=== PATIENT | female | born 1985 | race Caucasian/White ===

== ENCOUNTER 2019-11-24 19:05 | Emergency (ER) | payer SELFPAY ==
[2019-11-24 19:07] VITALS: BP 144/87; PULSE 79; RESP 18; TEMP 36.4; O2SAT 96; BMI 42.0
--- NOTE | 2019-11-24 19:44 | W.ED.BACK ---
HPI - Back Pain/Injury General: Chief Complaint: Back Pain/Injury Stated Complaint: lower back pain Time Seen by Provider: 11/24/19 19:32 History of Present Illness: HPI Narrative: Patient is a 34-year-old female comes into the ED with low back pain. Patient says it started really bad last night. For the past week patient has been in the process of moving so she has been doing a lot of lifting lately. Patient describes the pain is all in the lower back and then it radiates and shoots down both legs. Denies any bladder or bowel incontinence or loss of sensation in the pelvic region. Associated symptoms: Deny abdominal pain, chills, dysuria, fatigue, fever(s), hematuria, nausea or vomiting Review of Systems Const: Denies: fever, chills or fatigue Eyes: Denies: change in vision or eye discomfort ENMT: Denies: throat pain, painful swallowing, nasal discharge or nasal congestion Card: Denies: chest pain, palpitations, edema, swelling of feet/ankles, shortness of breath on exertion or shortness of breath when lying down Resp: Denies: shortness of breath, productive cough or non-productive cough GI: Denies: abdominal pain, nausea, vomiting, diarrhea, constipation or blood in stool : Denies: flank pain, painful urination or blood in urine Musc: Denies: neck pain, back pain or extremity swelling Skin/Breast: Denies: rash or new lesion Neuro: Denies: headache, numbness in extremities or weakness in extremities PFS ED PFSH: Social History Smoking and tobacco status: current every day smoker Physical Exam Const: COMMON NORMALS: oriented x3 HENMT: COMMON NORMALS: normocephalic HEAD & SCALP: normocephalic MOUTH: oral and palatal mucosa normal THROAT: posterior oropharynx normal and uvula midline Neck/C-Spine: COMMON NORMALS: supple GENERAL: Yes normal visual inspection Resp: COMMON NORMALS: normal respiratory effort, no retractions, no use of accessory muscles and clear to auscultation bilaterally AUSCULTATION: clear to auscultation bilaterally Cardio: COMMON NORMALS: regular rate, regular rhythm, S1 normal heart sound, S2 normal heart sound, no gallops, no clicks, no murmurs and peripheral pulses 2+ throughout RATE: regular rate RHYTHM: regular rhythm HEART SOUNDS: S1 normal and S2 normal PERIPHERAL PULSES: pulses 2+ throughout GI: COMMON NORMALS: normal to inspection, nondistended, normoactive bowel sounds, soft to palpation, non-tender and no masses PALPATION: Yes soft : COMMON NORMALS: Yes no CVA tenderness BLADDER/KIDNEY EXAM: Yes no CVA tenderness Back/Pelvis: COMMON NORMALS: no CVA tenderness LUMBAR SPINE/LOWER BACK: Yes ROM limited (due to pain) and Yes paraspinal muscle tenderness Extremity: COMMON NORMALS: normal to inspection Neuro: COMMON NORMALS: oriented x3 and moves all extremities Skin: COMMON NORMALS: no rashes or lesions noted GENERAL SKIN EXAM: no rashes or lesions noted and dry skin Course Vital Signs: Vital signs: Vital Signs Temperature 98.4 F 11/24/19 20:34 Pulse Rate 68 11/24/19 20:34 Respiratory Rate 18 11/24/19 20:34 Blood Pressure 137/102 11/24/19 20:34 Pulse Oximetry 68 L 11/24/19 20:34 Discharge Plan Discharge Patient Disposition: Home, Self-Care Clinical Impression: Lumbar radiculopathy Condition: Stable Prescriptions: New ibuprofen 600 mg tablet 600 mg PO Q8H Qty: 30 RF: 0 Robaxin-750 750 mg tablet 750 mg PO Q8H Qty: 20 RF: 0 prednisone 20 mg tablet 20 mg PO TID 5 Days Qty: 15 RF: 0 No Action No Known Home Medications RF: 0 Discharge Orders: Discharge Order (Routine); Ordered 11/24/19 Ordered By: Swapnil Valladares Discharge Diet: Regular Discharge Activity: Increase activity as tolerated Patient Instructions: Lumbar Radiculopathy (ED) Activity Restrictions/Additional Instructions: Follow-up with your PCP in 7 days for reevaluation. Take muscle relaxer at night before bed. Muscle relaxer can cause drowsiness. Take the full course of the steroid as prescribed and also take the ibuprofen as prescribed for pain and inflammation. Apply ice on lower back to help with symptoms. You can also apply some heat to lower back if that helps as well. Remember to stretch lower back daily. Stand Alone Forms: Work/School Release Discharge Date/Time: 11/24/19 20:33 Coding Level of Care Code ED Fractionation Supervisor for Joss Fwd Exam Comprehensive
[2019-11-24] MEDS: predniSONE 20 mg Tablet 60 MG PO (20:12)
[2019-11-24] MEDS: ketorolac 30 mg/mL INJ IM (20:18)
[2019-11-24] MEDS: orphenadrine 30 mg/mL Inj 2 mL 60 MG IM (20:21)
[2019-11-24 20:34] VITALS: BP 137/102; PULSE 68; RESP 18; TEMP 36.9; O2SAT 68
== END 2019-11-24 20:33 | disposition home or self-care (01) ==
PROVIDERS: Emergency Provider Physician Assistant
DX: M54.16 Radiculopathy, lumbar region (principal); F17.200 Nicotine dependence, unspecified, uncomplicated
CPT/HCPCS: 12345; 96372; 96375; 99281; 99283; J1885; J2360; J7512

== ENCOUNTER 2020-05-18 07:43 | Emergency (ER) | payer SELFPAY ==
[2020-05-18 07:44] VITALS: BP 162/95; PULSE 100; RESP 18; TEMP 36.9; O2SAT 97; BMI 42.0
[2020-05-18 07:57] VITALS: BP 134/92; PULSE 97; RESP 16; O2SAT 97
--- NOTE | 2020-05-18 07:59 | W.ED.GENADLT ---
HPI - General Adult General: Chief complaint: Headache Stated complaint: MOHAMUD/L SIDE PAIN/BACK PAIN Time Seen by Provider: 05/18/20 07:47 History of Present Illness: HPI narrative: Patient comes in complain about tension type headache that she gets after work over the last week and work has been stressful past week because it is in the month. Also has history of low back problems now having some left flank pain. She denies any hematuria. She is taken [id number] caffeine Tylenol aspirin combination she said that seems to help her headache. She has a history of migraines also. Light and sound do bother her headache. MD complaint: Tension type headache that is brought on a migraine Onset (ago): day(s) Associated symptoms: Reports no associated symptoms and headache(s); Deny chest pain, dyspnea, nausea, rash or vomiting Treatments prior to arrival: NSAID and aspirin Review of Systems Const: Denies: fever(s), chills or body aches Eyes: Denies: change in vision or blurry vision ENMT: Denies: throat pain or nasal congestion Card: Denies: chest pain or dyspnea on exertion Resp: Denies: dyspnea, productive cough or non-productive cough GI: Denies: abdominal pain, nausea or vomiting Musc: Reports: other (Left flank pain is nonradiating); Denies: extremity pain Skin/Breast: Denies: rash Neuro: Reports: headache(s) Psych: Denies: anxiety or depression Price/Lymph: Denies: easy bruising PFSH ED PFSH: Social History Smoking and tobacco status: current every day smoker Physical Exam Const: COMMON NORMALS: no acute distress, average body habitus and patient oriented x3 HENMT: COMMON NORMALS: normocephalic HEAD & SCALP: normal to inspection and normocephalic FACE & SINUS: normal facial exam Eye: COMMON NORMALS: conjunctivae normal GENERAL EYE: appearance normal, both eyes and all related structures CONJUNCTIVA: Yes conjunctivae normal Neck/C-Spine: COMMON NORMALS: no JVD Chest: COMMONS NORMALS: normal inspection of the chest Resp: COMMON NORMALS: normal respiratory effort and clear to auscultation bilaterally AUSCULTATION: clear to auscultation bilaterally Cardio: COMMON NORMALS: no JVD, regular rate and regular rhythm RATE: regular rate RHYTHM: regular rhythm GI: COMMON NORMALS: Normal to inspection, nondistended, normoactive bowel sounds present Extremity: COMMON NORMALS: normal to inspection and full ROM Neuro: COMMON NORMALS: patient oriented x3 Course Vital Signs: Vital signs: Vital Signs Temperature 98.4 F 05/18/20 07:44 Pulse Rate 100 05/18/20 07:44 Respiratory Rate 18 05/18/20 07:44 Blood Pressure 162/95 05/18/20 07:44 Pulse Oximetry 97 05/18/20 07:44 Discharge Plan Discharge Prescriptions: No Action No Known Home Medications RF: 0 ibuprofen 600 mg tablet 600 mg PO Q8H Qty: 30 RF: 0 Robaxin-750 750 mg tablet 750 mg PO Q8H Qty: 20 RF: 0 Coding Level of Care Code ED Brain Wave Technician for Joss [place]
[2020-05-18] MEDS: ketorolac 30 mg/mL INJ IVP (08:09)
[2020-05-18] MEDS: sodium chloride 0.9% 1,000 ML 999 ML IV (08:09)
[2020-05-18] MEDS: ondansetron 2 mg/ML SDV 2 mL 4 MG IVP (08:10)
[2020-05-18 08:23] LABS: Specific Gravity, Urine 1.015 (1.005-1.030); Urine Appearance Hazy (CLEAR); Urine Color Yellow (Yellow); pH Urine 6.5 (5-7)
[2020-05-18 08:24] LABS: Add Urine Microscopic? YES; Bilirubin Urine Neg (NEGATIVE); Blood Urine 2+ (Negative); Glucose Urine UA Norm (Normal); Ketones Urine Negative (Negative); Leukocyte Esterase Urine 1+ (Negative); Nitrate Urine Negative (Negative); Protein Urine Neg (Negative); Urobilinogen Urine Norm (Negative)
[2020-05-18 08:25] LABS: Squamous Epithelial Cell Urine 15-25 (0-5)
[2020-05-18 08:26] LABS: Add Urine Culture? No; Bacteria Urine 1+; Mucus Urine TRACE
[2020-05-18 09:03] VITALS: BP 120/67; PULSE 71; RESP 18; O2SAT 96
--- NOTE | 2020-05-18 09:34 | CT_ITS ---
WS: [id number] CT ABDOMEN AND PELVIS NONCONTRAST HISTORY: left flank pain TECHNIQUE: Imaging performed through the abdomen and pelvis. Coronal and sagittal reformats are submi tted. All CT scans at [facility] use at least one of these dose optimization techniques: automated exposure control; mA and/or kV adjustment per patient size (includes targeted exams where d ose is matched to clinical indication); or iterative reconstruction. DLP: 1725.19 mGy.cm COMPARISON: 07/31/2019 Lower thorax: Small hiatal hernia. Otherwise negative. Liver: Moderate hepatomegaly and hepatic steatosis. No mass or bile duct dilatation. Benign granuloma ta. Gallbladder: Normal gallbladder. Pancreas: Normal size and attenuation. Normal pancreatic duct. No pancreatitis or mass. Spleen: Normal size spleen with granulomata. Adrenal glands: Normal. No mass. Right kidney: Nonobstructing 2 mm calcification lower pole. Otherwise negative. Left kidney: Mild enlargement and perinephric stranding. No hydronephrosis. Although there is no hydr onephrosis there is very mild inflammation at the central renal pelvis. The ureter is not dilated. Aorta: Normal abdominal aorta, no aneurysm or atherosclerosis. No free fluid or significant adenopathy. There are calcifications near the rosa hepatis which are pr obably from prior granulomatous disease and stable. GI tract: Normal appendix. There is no GI tract obstruction. No significant diverticular disease. Abdominal wall: Small umbilical hernia contains fat only. Pelvis: Normal. Small benign inguinal lymph nodes are stable. Osseous structures: Unremarkable. CT/CT kidney stone [id number] IMPRESSION: 1. Very minimal perinephric stranding and inflammatory changes involving the L EFT kidney and renal pelvis. No stones or calcifications identified or obstruct ion. May be secondary to a recently passed renal calcification or pyelonephriti s. 2. Nonobstructing 2 mm calcification RIGHT kidney. 3. Moderate hepatomegaly and hepatic steatosis. 4. Normal gallbladder.
[2020-05-18 10:00] VITALS: BP 124/86; PULSE 70; RESP 16; O2SAT 96
[2020-05-18 11:01] VITALS: BP 143/80; PULSE 70; RESP 15; O2SAT 97
--- NOTE | 2020-05-18 12:34 | PC.NURSE ---
Read and agree with assessment.
== END 2020-05-18 11:02 | disposition home or self-care (01) ==
PROVIDERS: Emergency Provider Nurse Practitioner Family
DX: R51 Headache (principal); F17.210 Nicotine dependence, cigarettes, uncomplicated
CPT/HCPCS: 12345; 74176; 81001; 96361; 96374; 96375; 99283; J1885; J2405; J7030

== ENCOUNTER → 2020-09-01 10:37 | Outpatient (BNVA) | payer SELFPAY | PROVIDERS: Visit Provider Nurse Practitioner Family | DX: N39.0 Urinary tract infection, site not specified (principal); R31.9 Hematuria, unspecified | CPT/HCPCS: 81000 ==

== ENCOUNTER 2021-02-09 08:44 | Emergency (ER) | payer SELFPAY ==
[2021-02-09 08:46] VITALS: BP 162/107; PULSE 94; RESP 18; TEMP 36.2; O2SAT 97; BMI 40.2
--- NOTE | 2021-02-09 08:57 | W.ED.HA ---
HPI - Headache General: Chief Complaint: Headache Stated Complaint: ABD pain/MOHAMUD Time Seen by Provider: 02/09/21 08:49 History of Present Illness: HPI Narrative: 36-year-old female comes in today with complaints of headache. Patient reports that she has a history of migraine headaches. Patient reports yesterday she got overheated at work and since then has been having a severe headache. Patient reports nausea and vomiting last night. Patient comes in today due to persistent headache and some abdominal discomfort. MD elicited complaint: headache Onset (ago): hour(s) Onset description: gradually Location: diffuse Severity: severe Quality & Timing: aching and throbbing Exacerbating factors: none Relieving factors: rest Context: other Associated symptoms: Reports nausea and vomiting Treatments prior to arrival: none Review of Systems General: Reports: 10 or more systems reviewed and unremarkable except in HPI and below GI: Reports: nausea and vomiting Neuro: Reports: headache(s) PFSH ED PFSH: Social History (Updated 09/01/20 @ 10:36 by Tyson Lauren LPN) Smoking and tobacco status: current every day smoker Alcohol intake: never Physical Exam Const: COMMON NORMALS: no acute distress and patient oriented x3 GENERAL APPEARANCE: cooperative HENMT: COMMON NORMALS: normocephalic and Normal external nose present HEAD & SCALP: normal to inspection and normocephalic NOSE: Normal external nose present MOUTH: Normal oral and palatal mucosa present Eye: GENERAL EYE: appearance normal, both eyes and all related structures Neck/C-Spine: COMMON NORMALS: full ROM Chest: COMMONS NORMALS: normal inspection of the chest Resp: COMMON NORMALS: normal respiratory effort EFFORT & INSPECTION: Yes able to speak in complete sentences Cardio: COMMON NORMALS: regular rate and regular rhythm RATE: regular rate RHYTHM: regular rhythm GI: COMMON NORMALS: non-tender : COMMON NORMALS: Yes no CVA tenderness BLADDER/KIDNEY EXAM: Yes no CVA tenderness Back/Pelvis: COMMON NORMALS: no CVA tenderness and thoracic and lumbar spine normal to inspection Extremity: COMMON NORMALS: normal to inspection Neuro: COMMON NORMALS: patient oriented x3 and moves all extremities Psych: COMMON NORMALS: mental status grossly normal and cooperative Skin: COMMON NORMALS: no rashes or lesions noted GENERAL SKIN EXAM: no rashes or lesions noted Course ED course: 1030, reassess patient. Patient reports resolution of headache. Patient appears well. Patient wants to go home now. Vital Signs: Vital signs: Vital Signs Temperature 97.2 F L 02/09/21 08:46 Pulse Rate 87 02/09/21 09:00 Respiratory Rate 12 02/09/21 09:00 Blood Pressure 150/125 02/09/21 09:00 Pulse Oximetry 97 02/09/21 09:00 MDM - Headache MDM Narrative: Medical decision making narrative: Patient reports that she started having a headache yesterday after becoming overheated at work. On exam patient appears mildly unwell but not toxic. Abdomen soft nontender. Skin was warm and dry. Patient had good range of motion the neck without any rigidity or signs of meningitis. Vital signs were normal except for some mild elevation in blood pressure. Differential diagnosis includes but not limited to dehydration, heat exhaustion, migraine headache. Laboratory values are unremarkable. Patient had resolution of headache with 1 L of IV fluid, 15 mg of Toradol, and 10 mg of Reglan. Suspect patient probably had become overheated at work that caused her to have a migraine. Patient was treated for migraine and had good results. Reviewed recommendations for follow-up and need for return. Patient reported understanding and agreed to plan. Lab Data: Labs: Lab Results 02/09/21 02/09/21 02/09/21 Range/Units 08:55 08:55 08:55 WBC 6.9 (4.0-10.0) 10^3/ uL RBC 5.25 (4.1-5.3) 10^6/u L Hgb 12.1 (11.5-15.3) g/dL Hct 39.7 (37.0-47.0) % MCV 75.6 L (81-99) fL MCH 23.0 L (28.0-34.0) pg MCHC 30.5 (30.0-36.0) g/dL RDW 16.9 H (12.1-15.1) % Plt Count 439 H (130-400) 10^3/c mm MPV 8.6 (7.4-10.4) fL Neut % (Auto) 56.3 % Lymph % (Auto) 34.1 % [place] % (Auto) 7.0 % Eos % (Auto) 1.6 % Baso % (Auto) 0.7 % Neut # (Auto) 3.89 (1.8-7.7) 10^3/u L Lymph # (Auto) 2.4 (0.8-4.8) 10^3/u L [place] # (Auto) 0.5 (0.2-0.9) 10^3/u L Eos # (Auto) 0.1 (0.0-0.8) 10^3/u L Baso # (Auto) 0.1 (0.0-0.1) 10^3/u L Nucleated RBC % (a uto) 0 % Nucleated RBCs # 0.0 /100WBC Sodium 138 (136-145) mmol/L Potassium 3.9 (3.5-5.1) mmol/L Chloride 102 (98-107) mmol/L Carbon Dioxide 25 (22-29) mmol/L Anion Gap 14.9 (5-19) BUN 6 (6-20) mg/dL Creatinine 0.6 (0.5-0.9) mg/dL GFR Calculation 113.1 (90-130) mL/min Glucose 123 H (65-115) mg/dL Calculated Osmolal ity 285 (285-295) mOsm/k g Calcium 8.7 (8.5-10.5) mg/dL Total Bilirubin 0.2 (0.15-1.2) mg/dL AST 16 (0-32) U/L ALT 23 (0-33) U/L Alkaline Phosphata se 146 H (35-105) IU/L Total Protein 7.3 (6.6-8.7) g/dL Albumin 4.3 (3.5-5.2) g/dL Globulin 3.0 (1.3-4.6) g/dL Lipase 24 (13-60) U/L HCG, Qual Negative (Negative) Discharge Plan Discharge Patient Disposition: Home Clinical Impression: Migraine Qualifiers: Migraine type: unspecified Status migrainosus presence: without status migrainosus Intractability: not intractable Qualified Code(s): G43.909 - Migraine, unspecified, not intractable, without status migrainosus Condition: Stable Prescriptions: No Action No Known Home Medications RF: 0 Discharge Orders: Discharge ED (Routine); Ordered 02/09/21 Ordered By: Twan Pugh Discharge Diet: Usual diet Discharge Activity: Increase activity as tolerated Patient Instructions: Migraine Headache (ED), Opioid Safety Activity Restrictions/Additional Instructions: Home and rest. Drink plenty of water. Continue routine medications as directed. Follow-up with primary care as needed. Return to the emergency department for new concerns. Stand Alone Forms: Work/School Release Coding Level of Care Code ED Adult Day Care Worker for Joss Fwbirgit Exam Comprehensive
[2021-02-09 09:00] VITALS: BP 150/125; PULSE 87; RESP 12; O2SAT 97
[2021-02-09 09:02] LABS: Basophils # 0.1 10^3/uL (0.0-0.1); Basophils % 0.7 %; Eosinophils # 0.1 10^3/uL (0.0-0.8); Eosinophils % 1.6 %; Hematocrit 39.7 % (37.0-47.0); Hemoglobin 12.1 g/dL (11.5-15.3); Lymphocytes # 2.4 10^3/uL (0.8-4.8); Lymphocytes % 34.1 %; Mean Corpuscular HGB Conc 30.5 g/dL (30.0-36.0); Mean Corpuscular Volume 75.6 fL (81-99); Mean Platelet Volume 8.6 fL (7.4-10.4); Monocytes # 0.5 10^3/uL (0.2-0.9); Neutrophils # 3.89 10^3/uL (1.8-7.7); Neutrophils % 56.3 %; Nucleated Red Blood Cells % 0 %; Platelet Count 439 10^3/cmm (130-400); Red Blood Count 5.25 10^6/uL (4.1-5.3); Red Cell Distribution Width 16.9 % (12.1-15.1); White Blood Count 6.9 10^3/uL (4.0-10.0)
[2021-02-09] MEDS: sodium chloride 0.9% 1,000 ML 999 ML IV (09:11)
[2021-02-09] MEDS: ketorolac 30 mg/mL INJ 15 MG IVP (09:11)
[2021-02-09] MEDS: metoclopramide 5 mg/mL SDV 2 mL 10 MG IVP (09:12)
[2021-02-09 09:25] LABS: HCG, Serum Qual Negative (Negative)
[2021-02-09 09:33] LABS: Alanine Aminotransferase 23 U/L (0-33); Albumin Level 4.3 g/dL (3.5-5.2); Alkaline Phosphatase 146 IU/L (35-105); Anion Gap 14.9 (5-19); Aspartate Amino Transferase 16 U/L (0-32); Blood Urea Nitrogen 6 mg/dL (6-20); Calcium 8.7 mg/dL (8.5-10.5); Carbon Dioxide 25 mmol/L (22-29); Chloride 102 mmol/L (98-107); Glomerular Filtration Rate 113.1 mL/min (90-130); Glucose 123 mg/dL (65-115); Lipase 24 U/L (13-60); Osmolality Calculated 285 mOsm/kg (285-295); Potassium 3.9 mmol/L (3.5-5.1); Sodium 138 mmol/L (136-145); Total Bilirubin 0.2 mg/dL (0.15-1.2); Total Protein 7.3 g/dL (6.6-8.7)
[2021-02-09 11:13] VITALS: BP 127/83; PULSE 76; RESP 16; O2SAT 97
== END 2021-02-09 11:14 | disposition home or self-care (01) ==
PROVIDERS: Emergency Provider Nurse Practitioner Family
DX: G43.909 Migraine, unspecified, not intractable, without status migrainosus (principal); F17.210 Nicotine dependence, cigarettes, uncomplicated
CPT/HCPCS: 80053; 83690; 84703; 85025; 96361; 96374; 96375; 99284; J1885; J2765; J7030

== ENCOUNTER → 2021-03-15 14:02 | Outpatient (BNVA) | payer SELFPAY | PROVIDERS: PCP Family Medicine Adult Medicine; Visit Provider Family Medicine Adult Medicine | DX: N93.9 Abnormal uterine and vaginal bleeding, unspecified (principal); Z98.51 Tubal ligation status; R51.9 Headache, unspecified; E66.01 Morbid (severe) obesity due to excess calories; Z68.41 Body mass index [BMI] 40.0-44.9, adult | CPT/HCPCS: 85025 ==

== ENCOUNTER → 2021-04-07 14:20 | Outpatient (BNVA) | payer OTHER, SELFPAY | PROVIDERS: PCP Family Medicine Adult Medicine; Visit Provider Nurse Practitioner Women's Health | DX: N93.9 Abnormal uterine and vaginal bleeding, unspecified (principal) | CPT/HCPCS: 84439; 84443; 88175 ==

== ENCOUNTER → 2021-04-15 00:01 | Outpatient (BNVA) | payer OTHER, SELFPAY | PROVIDERS: PCP Family Medicine Adult Medicine; Visit Provider Nurse Practitioner Women's Health | DX: A59.9 Trichomoniasis, unspecified (principal) | CPT/HCPCS: 87661 ==

== ENCOUNTER → 2021-04-21 14:03 | Outpatient (BNVA) | payer OTHER, SELFPAY | PROVIDERS: PCP Family Medicine Adult Medicine; Visit Provider Nurse Practitioner Women's Health | DX: N93.9 Abnormal uterine and vaginal bleeding, unspecified (principal); N88.8 Other specified noninflammatory disorders of cervix uteri | CPT/HCPCS: 76830 ==

== ENCOUNTER → 2021-06-04 08:27 | Outpatient (BNVA) | payer OTHER, SELFPAY | PROVIDERS: PCP Family Medicine Adult Medicine; Visit Provider Nurse Practitioner Women's Health | DX: Z20.822 Contact with and (suspected) exposure to COVID-19 (principal); N93.9 Abnormal uterine and vaginal bleeding, unspecified | CPT/HCPCS: 87635 ==

== ENCOUNTER 2021-06-10 06:05 | Day surgery (SDC) | payer OTHER, SELFPAY ==
[2021-06-04 09:34] VITALS: BMI 45.1
--- NOTE | 2021-06-04 09:59 | ANES.PREANE2 ---
Pre-Anesthetic Assessment Pre-Anesthetic Assessment: Height/Weight: Height 1.57 m Weight 112.037 kg Proposed Procedure: Operation Date: 06/10/21 07:10 Proposed Procedures p Dilation And Curettage (D&C) Endometrial biopsy [id number] N93.9(Not Applicable) - Segundo Mcgill MD Was Beta Deloris taken within 24 hours: N/A Was Clonidine taken within 24 hours: N/A Social: Social History: Tobacco and No alcohol Exam: Pre-Anes Outpt Exam: alert, oriented x 3 and regular rate & rhythm Airway: Submandibular: WNL Cervical ROM: WNL MP: 2 Dentition: False Pulmonary: Pulmonary: COPD CV/HEM: CV/HEM: Anemia Metabolic: Metabolic: Morbid obesity Neuropsych: Neuropsych: MOHAMUD Anesthetic Plan: ASA status: 3 Anesthesia: General Risk of > 500 ml blood loss (7ml/kg in children): No PFSH Anesthesia PFSH: Medical History Abnormal uterine bleeding unrelated to menstrual cycle Generalized headaches Morbid obesity with BMI of 40.0-44.9, adult No pertinent past medical history neghx: htn,dm,thyroid,dvt/pe PCP: Dr. Mckeon Surgical History History of bilateral tubal ligation (~2007) History of lumpectomy of left breast benign History of placement of ear tubes Hx of section 2002 2007- tubal ligation at same time Hx of removal of cyst (~2009) on tailbone-- had to have packing Family History Sister Diabetes Father Diabetes Hypertension Family/Other Stroke Maternal Aunt Denies family history of Colon cancer Ovarian cancer Heart disease Hypercholesteremia Breast cancer Uterine cancer Thyroid disease Data Anesthesia Cardiac Studies: No Data to Display
[2021-06-10] VITALS (7 sets, daily range): BP systolic 110–165; BP diastolic 80–104; PULSE 96–145; RESP 17–22; TEMP 36.3–37; O2SAT 89–98
[2021-06-10 06:20] LABS: OR HCG Qualitative Urine Negative (Negative)
[2021-06-10] MEDS: scopolamine 1.5 Patch 1 PATCH TRANSDERMA (06:30)
[2021-06-10] MEDS: sodium chloride 0.9% 500 ML IV (06:30)
[2021-06-10 06:44] LABS: Basophils % 0.4 %; Eosinophils # 0.2 10^3/uL (0.0-0.8); Eosinophils % 1.9 %; Hematocrit 34.4 % (37.0-47.0); Hemoglobin 9.9 g/dL (11.5-15.3); Lymphocytes # 2.7 10^3/uL (0.8-4.8); Lymphocytes % 33.9 %; Mean Corpuscular HGB Conc 28.8 g/dL (30.0-36.0); Mean Corpuscular Hemoglobin 21.5 pg (28.0-34.0); Mean Corpuscular Volume 74.6 fl (81-99); Mean Platelet Volume 8.6 fL (7.4-10.4); Monocytes # 0.5 10^3/uL (0.2-0.9); Monocytes % 5.9 %; Neutrophils # 4.58 10^3/uL (1.8-7.7); Neutrophils % 57.6 %; Nucleated Red Blood Cells % 0 %; Platelet Count 512 10^3/cmm (130-400); Red Blood Count 4.61 10^6/uL (4.1-5.3); Red Cell Distribution Width 19.5 % (12.1-15.1); White Blood Count 7.9 10^3/uL (4.0-10.0)
--- NOTE | 2021-06-10 06:46 | P.ANESUD_ITS ---
Pre-Anesthetic Update Pre-Anesthetic Assessment: Date of Surgery/Procedure: 06/10/21 Preop Lissett gnosis: Abnormal uterine bleeding Proposed Procedure: Operation Date: 06/10/21 07:00 Proposed Procedures p Dilation And Curettage (D&C) Endometrial biopsy [id number] N93.9(Not Applicable) - Segundo Mcgill MD Any changes to Pre-Anesthetic Assessment?: No Last Intake: Intake Last Liquid Date 06/10/21 Last Liquid Time 04:50 Last Solid Date 06/09/21 Last Solid Time 20:00 Labs Last 48hrs: Laboratory Results - last 48 hr 06/10/21 06/10/21 06:08 06:15 WBC 7.9 RBC 4.61 Hgb 9.9 L Hct 34.4 L MCV 74.6 L MCH 21.5 L MCHC 28.8 L RDW 19.5 H Plt Count 512 H MPV 8.6 Neut % (Auto) 57.6 Lymph % (Auto) 33.9 [place] % (Auto) 5.9 Eos % (Auto) 1.9 Baso % (Auto) 0.4 Neut # (Auto) 4.58 Lymph # (Auto) 2.7 [place] # (Auto) 0.5 Eos # (Auto) 0.2 Baso # (Auto) 0.0 Nucleated RBC % (a uto) 0 Nucleated RBCs # 0.0 Urine HCG, Qual Negative Vitals: Temperature 97.4 F L 06/10/21 06:16 Temperature Source Temporal Artery S can 06/10/21 06:16 Pulse Rate 96 06/10/21 06:16 Respiratory Rate 18 06/10/21 06:16 Blood Pressure 165/104 06/10/21 06:16 Blood Pressure Carline n 124 06/10/21 06:16 Pulse Oximetry 98 06/10/21 06:16 Oxygen Delivery Me thod 06/10/21 06:17 Exam: Pre-Anes Outpt Exam: alert, oriented x 3 and clear to auscultation bilaterally Cardiac Studies: No Data to Display
[2021-06-10 06:58] LABS: Alanine Aminotransferase 18 U/L (0-33); Albumin Level 3.8 g/dL (3.5-5.2); Alkaline Phosphatase 126 IU/L (35-105); Anion Gap 14.1 (5-19); Aspartate Amino Transferase 15 U/L (0-32); Blood Urea Nitrogen 11 mg/dL (6-20); Carbon Dioxide 25 mmol/L (22-29); Chloride 101 mmol/L (98-107); Globulin 3.6 g/dL (1.3-4.6); Glomerular Filtration Rate 113.1 mL/min (90-130); Glucose 139 mg/dL (65-115); Osmolality Calculated 284 mOsm/kg (285-295); Potassium 4.1 mmol/L (3.5-5.1); Sodium 136 mmol/L (136-145); Total Bilirubin 0.2 mg/dL (0.15-1.2); Total Protein 7.4 g/dL (6.6-8.7)
--- NOTE | 2021-06-10 06:58 | W.PM.OPSUD ---
Surgery/Procedure H&P Update DATE OF PROCEDURE: June 10, 2021 DATE H&P PERFORMED: 06/01/21 H&P UPDATE INFORMATION: I have reviewed H&P completed within last 30 days, I have examined patient prior to procedure and No changes to prior documentation PREOP DIAGNOSIS: Abnormal uterine bleeding PLANNED PROCEDURE: Operation Date: 06/10/21 07:00 Proposed Procedures p Dilation And Curettage (D&C) Endometrial biopsy [id number] N93.9(Not Applicable) - Segundo Mcgill MD
[2021-06-10 07:10] LABS: Add Urine Culture? No; Add Urine Microscopic? YES; Bacteria Urine TRACE /hpf; Bilirubin Urine Neg (Negative); Blood Urine Neg (Negative); Glucose Urine UA Norm (Normal); Ketones Urine Negative (Negative); Leukocyte Esterase Urine Negative (Negative); Mucus Urine TRACE /hpf; Nitrate Urine Negative (Negative); Protein Urine Neg (Negative); RBC Urine 0-4 /hpf (0-2); Urine Appearance SL Hazy (CLEAR); Urine Color Yellow (Yellow); Urobilinogen Urine Norm (Negative); WBC Urine 0-4 /hpf (0-5); pH Urine 5 (5-7)
[2021-06-10 07:11] LABS: Calcium 8.5 mg/dL (8.5-10.5)
[2021-06-10] MEDS: sodium chloride 0.9% 1,000 ML 30 ML IV (07:12)
--- NOTE | 2021-06-10 07:32 | PM.OP ---
Operative Report Date of procedure: June 10, 2021 Pre-op Diagnosis: Abnormal uterine bleeding Post-op diagnosis: same Procedure Done: Fractional dilation and curettage Pathology: Endocervical curettings. Endometrial curetting Surgeon: Sgeundo Mcgill MD Anesthesia: General Estimated blood loss (mL): 1 IV fluids (mL): 500 Condition: stable Disposition: PACU Procedure: After informed consent, the risks included but were not limited to bleeding, infection, injury to internal organs. The patient was counseled on a possible laparotomy and on the potential need for hysterectomy. The patient expressed understanding of the risks involved, all questions were answered, and the patient consented to the procedure. The patient was taken to the operating room where general anesthesia was administered. She was placed in the dorsal lithotomy position and prepped and draped in sterile fashion. A time out procedure was performed. The patient was examined under anesthesia and found to have a normal uterus with normal adnexa. A sterile speculum was placed in the vagina, and the anterior lip of cervix was grasped with the single toothed tenaculum. The uterus was then gently sounded to 12 cm, and the cervix was dilated with cervical dilators. The curette was advanced gently to the uterine fundus rotated to clear the uterus. The curettage was then performed until a gritty texture was noted. There was minimal bleeding noted and the tenaculum removed with goad hemostasis noted. The patient tolerated the procedure well. The patient was taken to the recovery area in stable condition. Instrument and sponge counts was correct x3.
--- NOTE | 2021-06-10 08:53 | PC.NURSE ---
No blood or drainage noted on kayla pad during post care or discharge to home.
--- NOTE | 2021-06-10 12:24 | ANE.PACU2 ---
Inpatient post-anesthesia follow up: Airway intact: Yes Vital signs: Temperature 98.6 F Pulse Rate 106 Respiratory Rate 18 Blood Pressure 110/81 Pulse Oximetry 95 Oxygen Delivery Me thod Room Air Oxygen Flow Rate 2 Fraction of Inspir ed Oxygen Hydration adequate: Yes Nausea and vomiting: No Pain level: 2 Mental status: Baseline
== END 2021-06-10 08:35 | disposition home or self-care (01) ==
PROVIDERS: PCP Family Medicine Adult Medicine; Visit Provider Obstetrics & Gynecology
PROC: (CPT 58120; principal; 2021-06-10 07:00)
DX: N93.9 Abnormal uterine and vaginal bleeding, unspecified (principal); J44.9 Chronic obstructive pulmonary disease, unspecified; E66.01 Morbid (severe) obesity due to excess calories; Z68.42 Body mass index [BMI] 45.0-49.9, adult; Z82.49 Family history of ischemic heart disease and other diseases of the circulatory system; Z83.3 Family history of diabetes mellitus
CPT/HCPCS: 58120; 36415; 80053; 81001; 81025; 84703; 85025; 86850; 86900; 88305; J0690; J3010; J7030; J7040

== ENCOUNTER 2021-07-12 08:33 | Emergency (ER) | payer OTHER, SELFPAY ==
[2021-07-12 08:39] VITALS: BP 138/85; PULSE 85; RESP 18; TEMP 36.6; O2SAT 100; BMI 44.8
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
[2021-07-12 08:56] VITALS: BP 135/93; PULSE 86; RESP 18; TEMP 36.7; O2SAT 98
--- NOTE | 2021-07-12 08:56 | CT_ITS ---
WS: [id number] CT ABDOMEN AND PELVIS WITH CONTRAST HISTORY: diffuse abdominal pain, nausea and vomiting for 3 weeks. TECHNIQUE: Imaging performed of the abdomen and pelvis with IV contrast. Single phase imaging of the abdomen. Coronal and sagittal reformats are submitted. All CT scans at [facility] use at [address] [facility] one of these dose optimization techniques: automated exposure control; mA and/or kV adjustment per patient size (includes targeted exams where dose is matched to clinical indication); or iterative re construction. IV CONTRAST: Omnipaque 300; 95 mL IV. Oral contrast: No DLP: 1751.33 mGy.cm COMPARISON: 05/18/2020 Lower thorax: Lung bases are clear. Heart is normal size. No hiatal hernia. Liver/biliary system: Mild diffuse hepatic steatosis. The liver is also moderately enlarged extending over a length of 19 cm. No bile duct dilatation or mass. Gallbladder: Normal. No gallstones or wall thickening. No pericholecystic fluid. Pancreas: Normal size pancreas and pancreatic duct. No adjacent inflammation. Spleen: Normal size spleen with several granulomata. Adrenal glands: Normal. Right kidney: Normal. Left kidney: Normal. Aorta: Normal. Lymphadenopathy: None. Free fluid: None. GI tract: Normal appendix. No GI tract obstruction. No significant diverticula. Abdominal wall: Unremarkable abdominal wall. No hernia. Pelvis: Normal size anteverted uterus. RIGHT ovarian cyst measures 4.0 x 3.8 cm. Small follicle LEFT ovary. Deep inguinal lymph nodes are mildly prominent measuring up to 12 mm but not considered enlarg ed. Bones: Unremarkable. CT/CT abdomen pelvis w con* [id number] IMPRESSION: 1. Normal appendix. 2. Moderate size RIGHT ovarian cyst measures 4.0 x 3.8 cm. 3. No GI tract obstruction. 4. Moderate hepatomegaly and mild hepatic steatosis.
[2021-07-12 09:12] LABS: Basophils # 0.1 10^3/uL (0.0-0.1); Basophils % 0.7 %; Eosinophils # 0.1 10^3/uL (0.0-0.8); Eosinophils % 1.6 %; Hematocrit 34.2 % (37.0-47.0); Hemoglobin 9.9 g/dL (11.5-15.3); Lymphocytes # 2.3 10^3/uL (0.8-4.8); Lymphocytes % 31.9 %; Mean Corpuscular HGB Conc 28.9 g/dL (30.0-36.0); Mean Corpuscular Hemoglobin 20.7 pg (28.0-34.0); Mean Corpuscular Volume 71.4 fl (81-99); Mean Platelet Volume 8.7 fL (7.4-10.4); Monocytes # 0.4 10^3/uL (0.2-0.9); Neutrophils # 4.36 10^3/uL (1.8-7.7); Neutrophils % 59.5 %; Nucleated Red Blood Cells % 0 %; Platelet Count 427 10^3/cmm (130-400); Red Blood Count 4.79 10^6/uL (4.1-5.3); Red Cell Distribution Width 18.5 % (12.1-15.1); White Blood Count 7.3 10^3/uL (4.0-10.0)
[2021-07-12 09:26] LABS: HCG, Serum Qual Negative (Negative)
[2021-07-12 09:32] LABS: Alanine Aminotransferase 15 U/L (0-33); Albumin Level 3.9 g/dL (3.5-5.2); Alkaline Phosphatase 128 IU/L (35-105); Anion Gap 15.1 (5-19); Aspartate Amino Transferase 13 U/L (0-32); Blood Urea Nitrogen 8 mg/dL (6-20); Calcium 8.9 mg/dL (8.5-10.5); Carbon Dioxide 24 mmol/L (22-29); Chloride 102 mmol/L (98-107); Glomerular Filtration Rate 94.7 mL/min (90-130); Glucose 143 mg/dL (65-115); Lipase 27 U/L (13-60); Osmolality Calculated 285 mOsm/kg (285-295); Potassium 4.1 mmol/L (3.5-5.1); Sodium 137 mmol/L (136-145); Total Bilirubin 0.2 mg/dL (0.15-1.2); Total Protein 6.9 g/dL (6.6-8.7)
[2021-07-12] MEDS: iohexol 300 mg/mL 100 mL Btl IV (09:35)
[2021-07-12 09:41] VITALS: BP 133/78; PULSE 75; RESP 16; O2SAT 98
[2021-07-12 09:51] LABS: Add Urine Microscopic? YES; Bilirubin Urine Neg (Negative); Blood Urine 2+ (Negative); Glucose Urine UA Norm (Normal); Ketones Urine Negative (Negative); Leukocyte Esterase Urine Negative (Negative); Nitrate Urine Negative (Negative); Protein Urine Neg (Negative); Urine Appearance Hazy (CLEAR); Urine Color Yellow (Yellow); Urobilinogen Urine Norm (Negative); pH Urine 6.5 (5-7)
[2021-07-12 09:54] LABS: Bacteria Urine 1+ /hpf; RBC Urine 0-4 /hpf (0-2); Squamous Epithelial Cell Urine 15-25 /hpf (0-5); WBC Urine 0-4 /hpf (0-5)
[2021-07-12 10:40] VITALS: BP 138/100; PULSE 78; RESP 18; O2SAT 96
== END 2021-07-12 10:38 | disposition home or self-care (01) ==
PROVIDERS: Emergency Provider Physician Assistant; PCP Family Medicine Adult Medicine
DX: R10.84 Generalized abdominal pain (principal); E66.01 Morbid (severe) obesity due to excess calories; Z68.41 Body mass index [BMI] 40.0-44.9, adult; F17.210 Nicotine dependence, cigarettes, uncomplicated
CPT/HCPCS: 74177; 80053; 81001; 83690; 84703; 85025; 99283; Q9967

== ENCOUNTER 2021-07-19 08:09 | Emergency (ER) | payer OTHER, SELFPAY ==
[2021-07-19 08:15] VITALS: BP 143/104; PULSE 98; RESP 20; TEMP 36.4; O2SAT 99; BMI 44.8
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
--- NOTE | 2021-07-19 08:44 | US_ITS ---
WS: [id number] ULTRASOUND ABDOMEN LIMITED CLINICAL INFORMATION: RUQ abd pain COMPARISON: None. FINDINGS: Technically difficult examination Liver Size: Enlarged Craniocaudal length: 19.2 cm. Echogenicity: Normal. Surface nodularity: None. Mass (size and location): None. Bile ducts Intrahepatic ducts: Normal. Common bile duct diameter: 0.3 cm. Gallbladder Normal. Gallstones: None. Gallbladder sludge: None. Gallbladder wall thickening: None. Pericholecystic fluid: None. Sonographic Amaya sign: Absent. Pancreas Normal as visualized. Right kidney: Normal. Hydronephrosis: None. Size: 11.3 cm x 4.6 cm x 4.8 cm. Abdominal aorta and IVC Visualized portions are normal. Ascites: None. US/US gall bladder [id number] IMPRESSION: 1. Hepatomegaly with diffuse fatty infiltration. 2. Normal gallbladder. No cholelithiasis. 3. Normal common bile duct. 4. No hydronephrosis in right kidney.
[2021-07-19 09:02] LABS: Basophils # 0.1 10^3/uL (0.0-0.1); Basophils % 0.8 %; Eosinophils # 0.1 10^3/uL (0.0-0.8); Eosinophils % 1.8 %; Hematocrit 36.5 % (37.0-47.0); Lymphocytes # 2.2 10^3/uL (0.8-4.8); Lymphocytes % 37.4 %; Mean Corpuscular HGB Conc 27.4 g/dL (30.0-36.0); Mean Corpuscular Hemoglobin 20.1 pg (28.0-34.0); Mean Corpuscular Volume 73.3 fl (81-99); Monocytes # 0.3 10^3/uL (0.2-0.9); Monocytes % 5.5 %; Neutrophils # 3.23 10^3/uL (1.8-7.7); Neutrophils % 54.3 %; Nucleated Red Blood Cells % 0 %; Platelet Count 459 10^3/cmm (130-400); Red Blood Count 4.98 10^6/uL (4.1-5.3); Red Cell Distribution Width 18.6 % (12.1-15.1)
[2021-07-19 09:16] LABS: Add Urine Microscopic? YES; Bilirubin Urine Neg (Negative); Blood Urine 3+ (Negative); Glucose Urine UA Norm (Normal); Ketones Urine Negative (Negative); Leukocyte Esterase Urine Negative (Negative); Nitrate Urine Negative (Negative); Protein Urine Neg (Negative); Specific Gravity, Urine 1.025 (1.005-1.030); Urine Appearance Clear (CLEAR); Urine Color Yellow (Yellow); Urobilinogen Urine Norm (Negative); pH Urine 5 (5-7)
[2021-07-19 09:17] LABS: Bacteria Urine TRACE /hpf; RBC Urine RARE /hpf (0-2); Squamous Epithelial Cell Urine 0-4 /hpf (0-5)
[2021-07-19 09:30] LABS: Alanine Aminotransferase 16 U/L (0-33); Albumin Level 3.7 g/dL (3.5-5.2); Alkaline Phosphatase 125 IU/L (35-105); Anion Gap 12.9 (5-19); Aspartate Amino Transferase 12 U/L (0-32); Blood Urea Nitrogen 16 mg/dL (6-20); Calcium 8.6 mg/dL (8.5-10.5); Carbon Dioxide 26 mmol/L (22-29); Chloride 101 mmol/L (98-107); Creatinine Clr Calc Pharmacy 152.4736; Globulin 3.3 g/dL (1.3-4.6); Glomerular Filtration Rate 113.1 mL/min (90-130); Glucose 143 mg/dL (65-115); Lipase 36 U/L (13-60); Osmolality Calculated 286 mOsm/kg (285-295); Potassium 3.9 mmol/L (3.5-5.1); Sodium 136 mmol/L (136-145); Total Bilirubin 0.2 mg/dL (0.15-1.2)
--- NOTE | 2021-07-20 12:01 | DCPLANNER ---
counter manager had message to schedule a follow up appointment for patient for an outpatient HIDA scan. counter manager faxed patients information to centralized scheduling, who will call patient with appointment information. counter manager also had message to schedule a follow up appointment for patient with [facility] General Surgery. counter manager emailed patients information to Idalia Salazar and Alondra at [facility] General Surgery / ENT clinic. Patients information will be printed and reviewed. Clinic will call patient with appointment information.
--- NOTE | 2021-07-21 11:40 | DCPLANNER ---
Patient has a follow up appointment scheduled for , July 22, 2021 at 3:[address] Leary at [facility] General Surgery. manager commercial called centralized scheduling, spoke with Mirela, to confirm that order for HIDA scan was received. manager commercial was told that scheduling did receive the order.
--- NOTE | 2021-07-30 14:47 | DCPLANNER ---
Addendum entered by Yanique Ross 10/09/21 12:25: Patient had a HIDA scan scheduled - patient did attend appointment. Patient had a follow up appointment scheduled with general surgery - patient did attend appointment. Original Note: Patient has an outpatient HIDA scan scheduled for Monday, August 09, 2021 at 10:00.
== END 2021-07-19 10:47 | disposition home or self-care (01) ==
PROVIDERS: Emergency Provider Family Medicine; PCP Family Medicine Adult Medicine
DX: K83.8 Other specified diseases of biliary tract (principal); F17.210 Nicotine dependence, cigarettes, uncomplicated
CPT/HCPCS: 76705; 80053; 81001; 83690; 85025; 99283

== ENCOUNTER 2021-08-09 09:40 | Outpatient (CLI) | payer OTHER, SELFPAY ==
--- NOTE | 2021-08-09 10:00 | NM_ITS ---
WS: [id number] NUCLEAR MEDICINE HIDA SCAN WITH GALLBLADDER EJECTION FRACTION HISTORY: R10.9 - Unspecified abdominal pain COMPARISON: 07/19/2021 TECHNIQUE: The patient was intravenously injected with 4.7 mCi of TC99m Mebrofenin. Immediate imaging over the right upper quadrant was followed by 5 minute image and additional images for a total of 60 minutes. Normal uptake of radiotracer throughout the liver. Activity identified in the gallbladder at 10 minutes and well distended by 60 minutes. Activity in the proximal small bowel was seen by 40 minutes. Good washout of the radiotracer from the liver by 60 minutes. The patient then drank 8 ounces of Ensure Plus. Ejection fraction at 60 minutes was 80%. Normal GB ej ection fraction is 35-75%. Post fatty meal symptoms: None. NM/NM hepatobiliary w phar* [id number] IMPRESSION: 1. Normal HIDA scan. 2. Normal gallbladder ejection fraction.
== END 2021-08-09 09:41 | disposition home or self-care (01) ==
LOC: NM 09:41
PROVIDERS: PCP Family Medicine Adult Medicine; Visit Provider Surgery
DX: R10.9 Unspecified abdominal pain (principal)
CPT/HCPCS: 78227; A9537

== ENCOUNTER → 2021-08-19 14:40 | Outpatient (BNVA) | payer OTHER, SELFPAY | PROVIDERS: PCP Family Medicine Adult Medicine; Visit Provider Nurse Practitioner Women's Health | DX: A59.9 Trichomoniasis, unspecified (principal) | CPT/HCPCS: 87661 ==

== ENCOUNTER → 2021-11-02 15:59 | Outpatient (BNVA) | payer OTHER, SELFPAY | PROVIDERS: PCP Family Medicine Adult Medicine; Visit Provider Obstetrics & Gynecology | DX: N93.9 Abnormal uterine and vaginal bleeding, unspecified (principal) | CPT/HCPCS: 83001; 84146; 84402; 84403; 84443 ==

== ENCOUNTER 2022-01-14 21:45 | Emergency (ER) | payer OTHER, SELFPAY ==
[2022-01-14 21:53] VITALS: BP 135/84; PULSE 115; RESP 24; TEMP 36.3; O2SAT 97; BMI 46.6
--- NOTE | 2022-01-14 22:53 | W.ED.BACK ---
HPI - Back Pain/Injury General: Chief Complaint: Back Pain/Injury Stated Complaint: low back pain Time Seen by Provider: 01/14/22 22:53 History of Present Illness: 36-year-old female comes in today with complaints of right low back pain. Patient reports that she was getting ice from her chest freezer and reached to grab a ice pack when she felt a pull and strain in her low back. Since then patient has had increasing tightening and pain to the right lower back. Patient does occasionally have back pain. Patient denies any fever, loss of bowel or bladder control Patient appears in moderate to severe pain. Patient appears nontoxic. Associated symptoms: Deny abdominal pain or fever(s) Review of Systems General: Reports: 10 or more systems reviewed and unremarkable except in HPI and below Const: Denies: fever(s) Card: Denies: chest pain Resp: Denies: dyspnea GI: Denies: abdominal pain Musc: Reports: back pain Skin/Breast: Denies: rash PFSH ED PFSH: Medical History Abnormal uterine bleeding unrelated to menstrual cycle Aftercare following surgery of the genitourinary system Family history of diabetes mellitus (DM) father and sister Generalized headaches Morbid obesity with BMI of 40.0-44.9, adult No pertinent past medical history neghx: htn,dm,thyroid,dvt/pe PCP: Dr. Mckeon Surgical History History of bilateral tubal ligation (~2007) History of lumpectomy of left breast benign History of placement of ear tubes Hx of section 2002 2007- tubal ligation at same time Hx of removal of cyst (~2009) on tailbone-- had to have packing Family History Sister Diabetes Father Diabetes Hypertension Family/Other Stroke Maternal Aunt Other Family history of diabetes mellitus (DM) Denies family history of Colon cancer Ovarian cancer Heart disease Hypercholesteremia Breast cancer Uterine cancer Thyroid disease Female Reproductive History: Date of last menstrual period: 07/19/21 Physical Exam Const: COMMON NORMALS: alert HENMT: COMMON NORMALS: normocephalic HEAD & SCALP: normocephalic Neck/C-Spine: COMMON NORMALS: full ROM Resp: COMMON NORMALS: normal respiratory effort and clear to auscultation bilaterally AUSCULTATION: clear to auscultation bilaterally Cardio: COMMON NORMALS: regular rate RATE: regular rate Back/Pelvis: LUMBAR SPINE/LOWER BACK: Yes paraspinal muscle tenderness Lumbar paraspinal muscle tenderness: right and Yes paraspinal muscle spasm Lumbar paraspinal muscle spasm: right Neuro: SENSORIUM/ORIENTATION: Yes alert Skin: COMMON NORMALS: no rashes or lesions noted GENERAL SKIN EXAM: no rashes or lesions noted Course Vital Signs: Vital signs: Vital Signs Temperature 97.4 F L 01/14/22 21:53 Pulse Rate 115 H 01/14/22 21:53 Respiratory Rate 24 H 01/14/22 21:53 Blood Pressure 135/84 01/14/22 21:53 Pulse Oximetry 97 01/14/22 21:53 MDM - Back Pain/Injury Medical Decision Making 36-year-old female comes in today with injury and pain to the right low back. On exam patient has muscle tenderness to the right lower paraspinous muscles. No spinal tenderness was noted on palpation. Differential diagnosis includes lumbar strain, contusion, intervertebral disc disease, facet arthropathy. Patient's explanation for the pain suggests a strain injury. We will go ahead and treat for pain with recommendations for follow-up. Patient stated understanding agreed to plan. Reviewed red flags such as fever and loss of bowel and bladder control with recommendations for immediate follow-up at that time. Patient stated understanding. Discharge Plan Discharge Patient Disposition: Home Clinical Impression: Strain of lumbar region Condition: Stable Prescriptions: New diclofenac sodium 50 mg tablet,delayed release (DR/EC) 50 mg PO BID Qty: 14 0RF hydrocodone-acetaminophen 5-325 mg tablet 1 tab PO TID PRN (Reason: pain (scale score 7-10)) Qty: 7 0RF No Action baclofen 10 mg tablet 10 mg PO TID PRN (Reason: muscle spasticity) Qty: 15 0RF amitriptyline 25 mg tablet 25 mg PO .hs Qty: 30 3RF Rx Instructions: take one daily at bedtime tramadol 50 mg tablet 50 mg PO Q8H PRN (Reason: headaches and mod to severe pain) 30 Days Qty: 30 3RF ferrous sulfate 325 mg (65 mg iron) tablet 325 mg PO BID 0RF loratadine 10 mg capsule 10 mg PO DAILY 0RF medroxyprogesterone 10 mg tablet 10 mg PO DAILY 10 Days Qty: 10 0RF norgestimate-ethinyl estradiol [Sprintec (28)] 0.25-35 mg-mcg tablet 1 tab PO DAILY Qty: 28 0RF tranexamic acid [Lysteda] 650 mg tablet 1,300 mg PO TID 5 Days Qty: 30 0RF Zofran 4 mg tablet 4 mg PO Q6H PRN (Reason: nausea and vomiting) Qty: 20 0RF ibuprofen 800 mg tablet 800 mg PO TID PRN (Reason: pain) Qty: 60 0RF acetaminophen 325 mg capsule 325 mg PO Q4H PRN (Reason: fever or pain) Qty: 60 0RF Discharge Orders: Discharge ED (Routine); Ordered 01/14/22 Ordered By: Twan Pugh Referrals: Kendall Mckeon MD [Primary Care Provider] - Discharge Diet: Usual diet Discharge Activity: Increase activity as tolerated Patient Instructions: Low Back Strain (ED), Opioid Safety Activity Restrictions/Additional Instructions: Activity as tolerated. Gentle stretching and range of motion exercises. Drink plenty of water with medication. Follow-up with primary care in 3 to 5 days for recheck. Return to ER for new concerns. Coding Level of Care Code ED Wound Care Coordinator for Joss [place]
[2022-01-14] MEDS: ketorolac 30 mg/mL INJ IM (23:27)
[2022-01-14] MEDS: orphenadrine 30 mg/mL Inj 2 mL 60 MG IM (23:27)
[2022-01-14] MEDS: HYDROcodone-acetaminophen 5-325 mg Tablet 1 TAB PO (23:28)
== END 2022-01-15 00:01 | disposition home or self-care (01) ==
PROVIDERS: Emergency Provider Nurse Practitioner Family; PCP Family Medicine Adult Medicine
DX: S39.012A Strain of muscle, fascia and tendon of lower back, initial encounter (principal); X58.XXXA Exposure to other specified factors, initial encounter; Z79.891 Long term (current) use of opiate analgesic
CPT/HCPCS: 96372; 99283; J1885; J2360

== ENCOUNTER 2022-08-13 19:03 | Emergency (ER) | payer OTHER, SELFPAY ==
[2022-08-13 19:37] LABS: Basophils # 0.1 10^3/uL (0.0-0.1); Basophils % 0.6 %; Eosinophils # 0.1 10^3/uL (0.0-0.8); Eosinophils % 0.9 %; Hematocrit 40.4 % (37.0-47.0); Lymphocytes # 3.8 10^3/uL (0.8-4.8); Lymphocytes % 35.6 %; Mean Corpuscular HGB Conc 29.7 g/dL (30.0-36.0); Mean Corpuscular Hemoglobin 21.2 pg (28.0-34.0); Mean Corpuscular Volume 71.5 fl (81-99); Mean Platelet Volume 8.5 fL (7.4-10.4); Monocytes # 0.5 10^3/uL (0.2-0.9); Monocytes % 4.7 %; Neutrophils # 6.11 10^3/uL (1.8-7.7); Neutrophils % 57.9 %; Nucleated Red Blood Cells % 0 %; Platelet Count 453 10^3/cmm (130-400); Red Blood Count 5.65 10^6/uL (4.1-5.3); White Blood Count 10.6 10^3/uL (4.0-10.0)
[2022-08-13 19:41] VITALS: BP 152/94; PULSE 99; RESP 20; TEMP 36.6; O2SAT 95; BMI 43.9
[2022-08-13 19:54] LABS: HCG, Serum Qual Negative (Negative)
[2022-08-13 19:56] LABS: Alanine Aminotransferase 24 U/L (0-33); Alkaline Phosphatase 141 U/L (35-105); Anion Gap 11.9 (5-19); Aspartate Amino Transferase 16 U/L (0-32); Blood Urea Nitrogen 11 mg/dL (6-20); Calcium 9.4 mg/dL (8.5-10.5); Carbon Dioxide 25 mmol/L (22-29); Chloride 96 mmol/L (98-107); Globulin 3.8 g/dL (1.3-4.6); Glomerular Filtration Rate 70.5 mL/min (90-130); Glucose 86 mg/dL (65-115); Lipase 38 U/L (13-60); Osmolality Calculated 267 mOsm/kg (285-295); Potassium 3.9 mmol/L (3.5-5.1); Sodium 129 mmol/L (136-145); Total Bilirubin 0.2 mg/dL (0.15-1.2); Total Protein 7.8 g/dL (6.6-8.7)
--- NOTE | 2022-08-13 21:02 | ED_ITS ---
Documented by User: COLTON Gallo 08/13/22 22:17 HPI - Back Pain/Injury General: Chief Complaint: Back Pain/Injury Stated Complaint: Left side abd pains Time Seen by Provider: 08/13/22 20:32 History of Present Illness: Patient is a 37-year-old female that presents to the emergency department with onset of mid back pain that radiates down the lateral aspect of the torso into the left lower extremity. Onset of symptoms yesterday while cooking. She reports symptoms have been aggravated today with movement. Patient denies falls or injuries Patient denies saddle paresthesias Patient denies loss of bowel or bladder control Patient denies any weakness in lower extremities Patient denies any numbness or tingling in lower extremities Prior to arrival patient has taken hot baths which have offered some relief Has not taken any [id number] medications Associated symptoms: Deny abdominal pain, chills, difficulty walking, dysuria, fatigue, fever(s), hematuria, nausea, urinary urgency or vomiting Review of Systems General: Reports: 10 or more systems reviewed and unremarkable except in HPI and below Const: Denies: fever(s), chills, change in appetite, change in weight, fatigue or malaise Eyes: Denies: change in vision, eye discomfort, eye discharge or eye redness ENMT: Denies: throat pain, enlarged tonsils, odynophagia, hoarseness, ear or mastoid pain, ear discharge, change in hearing, tinnitus, nasal discharge, nasal congestion, post nasal drip or sinus pain Card: Denies: chest pain, palpitations, irregular heart rhythm, edema, dyspnea on exertion, orthopnea or leg pain with exertion Resp: Denies: dyspnea, productive cough, non-productive cough, wheezing, strid or or chest congestion GI: Denies: abdominal pain, nausea, vomiting, dysphagia, diarrhea, constipation, bloating, GI cramping or hematochezia : Denies: flank pain, difficulty voiding, dysuria, urinary frequency, urinary urgency, urinary hesitancy, oliguria or hematuria Musc: Reports: back pain and extremity pain; Denies: neck pain, joint pain, joint swelling, joint redness, joint warmth, muscle weakness or other (Denies weakness, numbness, tingling) Skin/Breast: Denies: rash, pruritus, erythema, photosensitivity or new lesions Neuro: Denies: headache(s), numbness in extremities, weakness in extremities, sensory changes, lack of coordination, difficulty walking, frequent falls, dizziness, confusion, Slurred speech present, difficulty communicating thoughts, seizure-like activity or involuntary movements Endo: Denies: polyuria, polydipsia or tired all the time Price/Lymph: Denies: easy bruising or easy bleeding PFSH ED PFSH: Medical History Abnormal uterine bleeding unrelated to menstrual cycle Aftercare following surgery of the genitourinary system Family history of diabetes mellitus (DM) father and sister Generalized headaches Morbid obesity with BMI of 40.0-44.9, adult No pertinent past medical history neghx: htn,dm,thyroid,dvt/pe PCP: Dr. Mckeon Surgical History History of bilateral tubal ligation (~2007) History of lumpectomy of left breast benign History of placement of ear tubes Hx of section 2002 2007- tubal ligation at same time Hx of removal of cyst (~2009) on tailbone-- had to have packing Family History Sister Diabetes Father Diabetes Hypertension Family/Other Stroke Maternal Aunt Other Family history of diabetes mellitus (DM) Denies family history of Colon cancer Ovarian cancer Heart disease Hypercholesteremia Breast cancer Uterine cancer Thyroid disease Female Reproductive History: Date of last menstrual period: 07/19/21 Physical Exam Const: COMMON NORMALS: no acute distress, average body habitus, patient oriented x3, no limitations, healthy appearing, alert and well nourished GENERAL APPEARANCE: cooperative, comfortable and well developed; not in distress and not anxious ORIENTATION/CONSCIOUSNESS: Yes awake, Yes oriented to person, Yes oriented to place and Yes oriented to time HENMT: COMMON NORMALS: normocephalic, atraumatic, hearing grossly normal bilaterally, external ears normal, EAC's normal, TM's normal bilaterally, Normal external nose present and Normal nasal mucous membranes and turbinates present HEAD & SCALP: normal to inspection, normocephalic and atraumatic FACE & SINUS: normal facial exam and face symmetric NOSE: Normal external nose present, Normal nares present and Normal nasal mucous membranes and turbinates present GENERAL EAR: hearing not grossly impaired EXTERNAL EAR: Yes external ears normal and Yes no periauricular adenopathy EXTERNAL AUDITORY CANAL: EAC's normal TYMPANIC MEMBRANE: TM's normal bilaterally MOUTH: Normal oral and palatal mucosa present, lip normal, tongue normal and Normal salivary glands and ducts present THROAT: posterior oropharynx normal, tonsils normal and uvula midline Eye: COMMON NORMALS: Equal, round and reactive pupils present, EOMs intact bilaterally, conjunctivae normal, no scleral icterus and no papilledema GENERAL EYE: appearance normal, both eyes and all related structures ALIGNMENT: Yes alignment normal PERIORBITAL: periorbital findings normal EYELID: eyelids normal CONJUNCTIVA: Yes conjunctivae normal PUPIL: Yes Equal, round and reactive pupils present DIRECT OPHTHALMOSCOPY: Yes no papilledema Neck/C-Spine: COMMON NORMALS: full ROM, supple, no meningeal signs and no JVD GENERAL: Yes normal visual inspection CERVICAL SPINE: Yes cervical ROM normal Lymph: LYMPHATIC: no lymphadenopathy noted Chest: COMMONS NORMALS: normal inspection of the chest Breast/axilla inspection: Yes no chest deformity, asymmetry, normal contours, no nodules, masses, tenderness Resp: COMMON NORMALS: normal respiratory effort, No retractions, No use of accessory muscles and clear to auscultation bilaterally EFFORT & INSPECTION: Yes able to speak in complete sentences, Yes symmetric chest movement, No abnormal respiratory pattern, No tachypneic and No respiratory distress AUSCULTATION: clear to auscultation bilaterally Cardio: COMMON NORMALS: no JVD, regular rate, regular rhythm and Peripheral pulses 2+ throughout RATE: regular rate RHYTHM: regular rhythm PERIPHERAL PULSES: Peripheral pulses 2+ throughout GI: COMMON NORMALS: Normal to inspection, nondistended, normoactive bowel sounds present, Soft to palpation and non-tender INSPECTION: Yes normal to inspection PALPATION: Yes Soft to palpation : COMMON NORMALS: Yes no CVA tenderness BLADDER/KIDNEY EXAM: Yes no CVA tenderness and Yes CVA tenderness Back/Pelvis: COMMON NORMALS: no CVA tenderness, thoracic and lumbar spine nor mal to inspection, no thoracic nor lumbar tenderness, thoraco-lumbar ROM normal and straight leg raise negative bilaterally GENERAL BACK: Yes CVA tenderness and No ecchymosis THORACIC SPINE/UPPER BACK: Yes normal to inspection LUMB AR SPINE/LOWER BACK: Yes normal to inspection and Yes straight leg raise negative bilaterally OTHER: Tenderness to palpation on left posterior lateral thorax Pain is described as sharp and cramping Patient reports radiation of pain into the left lower extremity following along the lateral aspect of the extremity She denies any numbness or tingling in the extremity She denies any weakness Patient denies any saddle paresthesias Lower extremity exam Patient is able to do a straight leg raise Patient is able to ambulate without difficulty?gait is even, stable and steady 5/5 strength in hip flexor, quad, hamstring, gastroc, EHL/FHL Sensation is grossly intact throughout the extremity Extremities well perfused BACK IMAGE (FEMALE): 1. Pain is localized in posterior lateral aspect of chest wall. Reproducible with movement. Reproducible with cough pain radiates into the lateral hip and left lower extremity Extremity: COMMON NORMALS: normal to inspection, full ROM and capillary refill normal GENERAL: Yes normal exam except as noted Neuro: COMMON NORMALS: patient oriented x3 SENSORIUM/ORIENTATION: Yes alert, Yes oriented to person, Yes oriented to place and Yes oriented to time MENINGEAL SIGNS: Yes no meningeal signs Psych: COMMON NORMALS: mental status grossly normal, Normal thought process present, cooperative, normal affect, speech normal and activity/motor behavior normal SPEECH: Yes normal speech THOUGHT PROCESS: Normal thought process present Skin: COMMON NORMALS: no rashes or lesions noted, no wounds, turgor normal, no jaundice, no petechiae and no mottling GENERAL SKIN EXAM: no rashes or lesions noted and turgor normal Course ED course: Patient presents with 24-hour history of mid back pain that appears to be musculoskeletal in nature. Pain is reproducible with any movement including cough. Patient has not taken any [id number] medications but has taken hot baths which have been helpful with her pain Here in the emergency department I am going to treat her with Toradol, Decadron, Norflex. We discussed diagnostic imaging for which I do not recommended at this time. I explained to her that she has not had any trauma and therefore an x-ray would likely not show any diagnostic findings With the type of pain she is having I believe she will improve with the medications mentioned above. I have advised her to follow-up with her primary care doctor this week to further discuss her symptoms and she is agreeable to this. We will forego any diagnostics at this time. Vital Signs: Vital signs: Vital Signs Temperature 97.9 F 08/13/22 19:41 Pulse Rate 74 08/13/22 22:37 Respiratory Rate 16 08/13/22 22:37 Blood Pressure 130/94 08/13/22 22:37 Pulse Oximetry 95 08/13/22 22:37 Oxygen Delivery Me thod 08/13/22 19:41 MDM - Back Pain/Injury Medical Decision Making Differential diagnoses include musculoskeletal/paraspinous muscle spasm, fracture, dislocation, pneumothorax Patient has had no trauma and denies any shortness of breath. Patient states pain developed when she was cooking and mopping. Today her pain suddenly worsened when she lifted her mother from a wheelchair to a commode Her pain also worsened when she was startled awake. Treated her pain with Toradol, Decadron, Norflex Labs 08/13/22 19:30 08/13/22 19:30 Laboratory Results WBC 10.6 10^3/uL (4.0-10.0) H 08/13/22 19:30 RBC 5.65 10^6/uL (4.1-5.3) H 08/13/22 19:30 Hgb 12.0 g/dL (11.5-15.3) 08/13/22 19:30 Hct 40.4 % (37.0-47.0) 08/13/22 19:30 MCV 71.5 fl (81-99) L 08/13/22 19:30 MCH 21.2 pg (28.0-34.0) L 08/13/22 19:30 MCHC 29.7 g/dL (30.0-36.0) L 08/13/22 19:30 RDW 19.0 % (12.1-15.1) H 08/13/22 19:30 Plt Count 453 10^3/cmm (130-400) H 08/13/22 19:30 MPV 8.5 fL (7.4-10.4) 08/13/22 19:30 Neut % (Auto) 57.9 % 08/13/22 19:30 Lymph % (Auto) 35.6 % 08/13/22 19:30 [place] % (Auto) 4.7 % 08/13/22 19:30 Eos % (Auto) 0.9 % 08/13/22 19:30 Baso % (Auto) 0.6 % 08/13/22 19:30 Neut # (Auto) 6.11 10^3/uL (1.8-7.7) 08/13/22 19:30 Lymph # (Auto) 3.8 10^3/uL (0.8-4.8) 08/13/22 19:30 [place] # (Auto) 0.5 10^3/uL (0.2-0.9) 08/13/22 19:30 Eos # (Auto) 0.1 10^3/uL (0.0-0.8) 08/13/22 19:30 Baso # (Auto) 0.1 10^3/uL (0.0-0.1) 08/13/22 19:30 Nucleated RBC % (auto) 0 % 08/13/22 19: Nucleated RBCs # 0.0 /100WBC 08/13/22 19:30 Sodium 129 mmol/L (136-145) L 08/13/22 19: Potassium 3.9 mmol/L (3.5-5.1) 08/13/22 19:30 Chloride 96 mmol/L (98-107) L 08/13/22 19: Carbon Dioxide 25 mmol/L (22-29) 08/13/22 19:30 Anion Gap 11.9 (5-19) 08/13/22 19:30 BUN 11 mg/dL (6-20) 08/13/22 19:30 Creatinine 0.9 mg/dL (0.5-0.9) 08/13/22 19:30 GFR Calculation 70.5 mL/min (90-130) L 08/13/22 19:30 Glucose 86 mg/dL (65-115) 08/13/22 19:30 Calculated Osmolality 267 mOsm/kg (285-295) L 08/13/22 19:30 Calcium 9.4 mg/dL (8.5-10.5) 08/13/22 19:30 Total Bilirubin 0.2 mg/dL (0.15-1.2) 08/13/22 19:30 AST 16 U/L (0-32) 08/13/22 19:30 ALT 24 U/L (0-33) 08/13/22 19:30 Alkaline Phosphatase 141 U/L (35-105) H 08/13/22 19:30 Total Protein 7.8 g/dL (6.6-8.7) 08/13/22 19: Albumin 4.0 g/dL (3.5-5.2) 08/13/22 19: Globulin 3.8 g/dL (1.3-4.6) 08/13/22: Lipase 38 U/L (13-60) 08/13/22 19:30 HCG, Qual Negative (Negative) 08/13/22 19:30 Urine Color Yellow (Yellow) 08/13/22 21:00 Urine Appearance Clear (CLEAR) 08/13/22 21:00 Urine pH 6 (5-7) 08/13/22 21:00 Ur Specific Portal 1.020 (1.005-1.030) 08/13/22 21:00 Urine Protein Trace (Negative) 08/13/22 21:00 Urine Glucose (UA) Norm (Normal) 08/13/22 21:00 Urine Ketones 1+ (Negative) H 08/13/22 21:00 Urine Blood Neg (Negative) 08/13/22 21:00 Urine Nitrate Negative (Negative) 08/13/22 21:00 Urine Bilirubin Neg (Negative) 08/13/22 21:00 Urine Urobilinogen 1 mg/dL (Negative) H 08/13/22 21:00 Ur Leukocyte Esterase Negative (Negative) 08/13/22 21:00 Urine RBC None /hpf (0-2) 08/13/22 21:00 Urine WBC 0-4 /hpf (0-5) H 08/13/22 21:00 Ur Squamous Epith Cells 5-10 /hpf (0-5) H 08/13/22 21:00 Amorphous Sediment Not Reportable 08/13/22 21:00 Urine Bacteria None /hpf (NONE) 08/13/22 21:00 Urine Mucus Trace /hpf 08/13/22 21:00 Discharge Plan Discharge Patient Disposition: Home Clinical Impression: Morbid obesity with BMI of 40.0-44.9, adult, Tobacco abuse, Thoracic back pain Condition: Stable Prescriptions: New methocarbamol 750 mg tablet 750 mg PO Q8H PRN (Reason: muscle spasm) 10 Days Qty: 30 0RF naproxen 500 mg tablet,delayed release (DR/EC) 500 mg PO Q12H Qty: 30 0RF Discontinued baclofen 10 mg tablet 10 mg PO TID PRN (Reason: muscle spasticity) Qty: 15 0RF Discharge Orders: Discharge ED (Routine); Ordered 08/13/22 Ordered By: Nadine Flower Referrals: Kendall Mckeon MD [Primary Care Provider] - Discharge Diet: Advance as tolerated Discharge Activity: Resume usual activity Patient Instructions: Opioid Safety, Pain Management Stand Alone Forms: Work/School Release Coding Level of Care Code ED Planer Operator / Grader for Chg Fwd Exam Comprehensive Medical Decision Making Straight Forward Documented by User: Hung Whaley DO 08/14/22 06:19 HPI - Back Pain/Injury General: Chief Complaint: Back Pain/Injury Stated Complaint: Left side abd pains Time Seen by Provider: 08/13/22 20:32 PFSH ED PFSH: Medical History Abnormal uterine bleeding unrelated to menstrual cycle Aftercare following surgery of the genitourinary system Family history of diabetes mellitus (DM) father and sister Generalized headaches Morbid obesity with BMI of 40.0-44.9, adult No pertinent past medical history neghx: htn,dm,thyroid,dvt/pe PCP: Dr. Mckeon Surgical History History of bilateral tubal ligation (~2007) History of lumpectomy of left breast benign History of placement of ear tubes Hx of section 2002 2007- tubal ligation at same time Hx of removal of cyst (~2009) on tailbone-- had to have packing Family History Sister Diabetes Father Diabetes Hypertension Family/Other Stroke Maternal Aunt Other Family history of diabetes mellitus (DM) Denies family history of Colon cancer Ovarian cancer Heart disease Hypercholesteremia Breast cancer Uterine cancer Thyroid disease Physical Exam Back/Pelvis: BACK IMAGE (FEMALE): 1. Pain is localized in posterior lateral aspect of chest wall. Reproducible with movement. Reproducible with cough pain radiates into the lateral hip and left lower extremity Course Vital Signs: Vital signs: Vital Signs Temperature 97.9 F 08/13/22 19:41 Pulse Rate 74 08/13/22 22:37 Respiratory Rate 16 08/13/22 22:37 Blood Pressure 130/94 08/13/22 22:37 Pulse Oximetry 95 08/13/22 22:37 Oxygen Delivery Me thod 08/13/22 19:41 MDM - Back Pain/Injury Medical Decision Making Differential diagnoses include musculoskeletal/paraspinous muscle spasm, fracture, dislocation, pneumothorax Patient has had no trauma and denies any shortness of breath. Patient states pain developed when she was cooking and mopping. Today her pain suddenly worsened when she lifted her mother from a wheelchair to a commode Her pain also worsened when she was startled awake. Treated her pain with Toradol, Decadron, Norflex Chart reviewed and patient discussed with midlevel. Agree with assessment and plan. Labs 08/13/22 19:30 08/13/22 19:30 Laboratory Results WBC 10.6 10^3/uL (4.0-10.0) H 08/13/22 19:30 RBC 5.65 10^6/uL (4.1-5.3) H 08/13/22 19:30 Hgb 12.0 g/dL (11.5-15.3) 08/13/22 19:30 Hct 40.4 % (37.0-47.0) 08/13/22 19:30 MCV 71.5 fl (81-99) L 08/13/22 19:30 MCH 21.2 pg (28.0-34.0) L 08/13/22 19:30 MCHC 29.7 g/dL (30.0-36.0) L 08/13/22 19:30 RDW 19.0 % (12.1-15.1) H 08/13/22 19:30 Plt Count 453 10^3/cmm (130-400) H 08/13/22 19:30 MPV 8.5 fL (7.4-10.4) 08/13/22 19:30 Neut % (Auto) 57.9 % 08/13/22 19:30 Lymph % (Auto) 35.6 % 08/13/22 19:30 [place] % (Auto) 4.7 % 08/13/22 19:30 Eos % (Auto) 0.9 % 08/13/22 19:30 Baso % (Auto) 0.6 % 08/13/22 19:30 Neut # (Auto) 6.11 10^3/uL (1.8-7.7) 08/13/22 19:30 Lymph # (Auto) 3.8 10^3/uL (0.8-4.8) 08/13/22 19: [place] # (Auto) 0.5 10^3/uL (0.2-0.9) 08/13/22 19:30 Eos # (Auto) 0.1 10^3/uL (0.0-0.8) 08/13/22 19: Baso # (Auto) 0.1 10^3/uL (0.0-0.1) 08/13/22 19: Nucleated RBC % (auto) 0 % 08/13/22 19: Nucleated RBCs # 0.0 /100WBC 08/13/22 19:30 Sodium 129 mmol/L (136-145) L 08/13/22 19: Potassium 3.9 mmol/L (3.5-5.1) 08/13/22 19: Chloride 96 mmol/L (98-107) L 08/13/22: Carbon Dioxide 25 mmol/L (22-29) 08/13/22 19: Anion Gap 11.9 (5-19) 08/13/22 19:30 BUN 11 mg/dL (6-20) 08/13/22 19: Creatinine 0.9 mg/dL (0.5-0.9) 08/13/22 19: GFR Calculation 70.5 mL/min (90-130) L 08/13/22 19:30 Glucose 86 mg/dL (65-115) 08/13/22 19:30 Calculated Osmolality 267 mOsm/kg (285-295) L 08/13/22: Calcium 9.4 mg/dL (8.5-10.5) 08/13/22 19:30 Total Bilirubin 0.2 mg/dL (0.15-1.2) 08/13/22 19: AST 16 U/L (0-32) 08/13/22: ALT 24 U/L (0-33) 08/13/22 19:30 Alkaline Phosphatase 141 U/L (35-105) H 08/13/22: Total Protein 7.8 g/dL (6.6-8.7) 08/13/22: Albumin 4.0 g/dL (3.5-5.2) 08/13/22: Globulin 3.8 g/dL (1.3-4.6) 08/13/22: Lipase 38 U/L (13-60) 08/13/22: HCG, Qual Negative (Negative) 08/13/22 19: Urine Color Yellow (Yellow) 08/13/22 21:00 Urine Appearance Clear (CLEAR) 08/13/22 21:00 Urine pH 6 (5-7) 08/13/22 21:00 Ur Specific Portal 1.020 (1.005-1.030) 08/13/22 21:00 Urine Protein Trace (Negative) 08/13/22 21:00 Urine Glucose (UA) Norm (Normal) 08/13/22 21:00 Urine Ketones 1+ (Negative) H 08/13/22 21:00 Urine Blood Neg (Negative) 08/13/22 21:00 Urine Nitrate Negative (Negative) 08/13/22 21:00 Urine Bilirubin Neg (Negative) 08/13/22 21:00 Urine Urobilinogen 1 mg/dL (Negative) H 08/13/22 21:00 Ur Leukocyte Esterase Negative (Negative) 08/13/22 21:00 Urine RBC None /hpf (0-2) 08/13/22 21:00 Urine WBC 0-4 /hpf (0-5) H 08/13/22 21:00 Ur Squamous Epith Cells 5-10 /hpf (0-5) H 08/13/22 21:00 Amorphous Sediment Not Reportable 08/13/22 21:00 Urine Bacteria None /hpf (NONE) 08/13/22 21:00 Urine Mucus Trace /hpf 08/13/22 21:00 Discharge Plan Discharge Patient Disposition: Home Clinical Impression: Morbid obesity with BMI of 40.0-44.9, adult, Tobacco abuse, Thoracic back pain Condition: Stable Prescriptions: New methocarbamol 750 mg tablet 750 mg PO Q8H PRN (Reason: muscle spasm) 10 Days Qty: 30 0RF naproxen 500 mg tablet,delayed release (DR/EC) 500 mg PO Q12H Qty: 30 0RF Discontinued baclofen 10 mg tablet 10 mg PO TID PRN (Reason: muscle spasticity) Qty: 15 0RF Discharge Orders: Discharge ED (Routine); Ordered 08/13/22 Ordered By: Nadine Flower Referrals: Kendall Mckeon MD [Primary Care Provider] - Discharge Diet: Advance as tolerated Discharge Activity: Resume usual activity Patient Instructions: Opioid Safety, Pain Management Stand Alone Forms: Work/School Release Coding Level of Care Code ED Planer Operator / Grader for Charisg Fwd Exam Comprehensive Medical Decision Making Straight Forward
[2022-08-13] MEDS: dexamethasone 10 mg/mL INJ IM (21:15)
[2022-08-13] MEDS: ketorolac 60 mg/2 mL INJ IM (21:18)
[2022-08-13] MEDS: orphenadrine 30 mg/mL Inj 2 mL 60 MG IM (21:18)
[2022-08-13 21:28] LABS: Add Urine Microscopic? YES; Bilirubin Urine Neg (Negative); Blood Urine Neg (Negative); Glucose Urine UA Norm (Normal); Ketones Urine 1+ (Negative); Leukocyte Esterase Urine Negative (Negative); Nitrate Urine Negative (Negative); Protein Urine Trace (Negative); Urine Appearance Clear (CLEAR); Urine Color Yellow (Yellow); Urobilinogen Urine 1 mg/dL (Negative); pH Urine 6 (5-7)
[2022-08-13 21:29] LABS: WBC Urine 0-4 /hpf (0-5)
[2022-08-13 21:30] LABS: Add Urine Culture? No; Mucus Urine TRACE /hpf
[2022-08-13] MEDS: sodium chloride 1 gm Tablet 2 GM PO (21:43)
[2022-08-13 22:37] VITALS: BP 130/94; PULSE 74; RESP 16; O2SAT 95
== END 2022-08-13 22:40 | disposition home or self-care (01) ==
PROVIDERS: Emergency Medicine; Emergency Provider Nurse Practitioner; PCP Family Medicine Adult Medicine
DX: M54.6 Pain in thoracic spine (principal); E66.01 Morbid (severe) obesity due to excess calories; Z68.41 Body mass index [BMI] 40.0-44.9, adult; Z72.0 Tobacco use
CPT/HCPCS: 80053; 81001; 83690; 84703; 85025; 96372; 99284; J1100; J1885; J2360

== ENCOUNTER 2023-02-15 04:09 | Emergency (ER) | payer SELFPAY ==
[2023-02-15 04:27] VITALS: BP 178/113; PULSE 115; RESP 18; TEMP 36.9; O2SAT 98; BMI 42.0
--- NOTE | 2023-02-15 04:30 | W.ED.GENADLT ---
HPI - General Adult General: Chief complaint: General Medical Stated complaint: cought, pain Time Seen by Provider: 02/15/23 04:17 History of Present Illness: 38-year-old lady with history of smoking presenting with generalized illness. Onset of symptoms of acute a few days ago. Notes cough, congestion, chest discomfort with coughing, aches, headache. Intensity symptoms moderate. Course has persisted. No other specific changes in health, exacerbating, or alleviating factors identified. Onset (ago): day(s) Severity: moderate Pain Consistency: intermittent Relieving factors: none Exacerbating factors: movement and other Associated symptoms: Reports cough, dyspnea, malaise and other Review of Systems General: Reports: 10 or more systems reviewed and unremarkable except in HPI and below Const: Reports: malaise Resp: Reports: dyspnea PFSH ED PFSH: Medical History Abnormal uterine bleeding unrelated to menstrual cycle Aftercare following surgery of the genitourinary system Family history of diabetes mellitus (DM) father and sister Generalized headaches Morbid obesity with BMI of 40.0-44.9, adult No pertinent past medical history neghx: htn,dm,thyroid,dvt/pe PCP: Dr. Mckeon Surgical History History of bilateral tubal ligation (~2007) History of lumpectomy of left breast benign History of placement of ear tubes Hx of section 2002 2007- tubal ligation at same time Hx of removal of cyst (~2009) on tailbone-- had to have packing Family History Sister Diabetes Father Diabetes Hypertension Family/Other Stroke Maternal Aunt Other Family history of diabetes mellitus (DM) Denies family history of Colon cancer Ovarian cancer Heart disease Hypercholesteremia Breast cancer Uterine cancer Thyroid disease Social History Substance/Drug Use: never Physical Exam Const: COMMON NORMALS: alert GENERAL APPEARANCE: cooperative and well developed HENMT: COMMON NORMALS: normocephalic and atraumatic HEAD & SCALP: normocephalic and atraumatic THROAT: posterior oropharynx normal Eye: COMMON NORMALS: conjunctivae normal CONJUNCTIVA: Yes conjunctivae normal SCLERA: sclerae normal Neck/C-Spine: COMMON NORMALS: supple GENERAL: Yes trachea midline Resp: EFFORT & INSPECTION: Yes able to speak in complete sentences AUSCULTATION: diminished lung sounds Cardio: COMMON NORMALS: regular rhythm RATE: tachycardic RHYTHM: regular rhythm GI: COMMON NORMALS: Soft to palpation PALPATION: Yes Soft to palpation and No Tenderness to palpation present (GI) Extremity: GENERAL: Yes normal exam except as noted and No edema Neuro: COMMON NORMALS: moves all extremities SENSORIUM/ORIENTATION: Yes alert and No Orientation impaired Psych: COMMON NORMALS: mental status grossly normal and Normal thought process present THOUGHT PROCESS: Normal thought process present Course Vital Signs: Vital signs: Vital Signs Temperature 98.5 F 02/15/23 04:27 Pulse Rate 86 02/15/23 05:58 Respiratory Rate 18 02/15/23 05:58 Blood Pressure 132/80 02/15/23 05:58 Pulse Oximetry 96 02/15/23 05:58 Oxygen Delivery Me thod Room Air 02/15/23 04:55 [facility] - General Adult Medical Decision Making 38-year-old lady with history of tobaccoism presenting with generalized illness including respiratory illness. Exam as above. Somewhat ill though nontoxic. Labs with mild leukocytosis and hemoconcentration. Metabolic panel without electrolyte derangement. Negative rapid viral testing. Chest x-ray with no lobar consolidation or pneumothorax. Patient is significantly improved with treatment of headache, IV fluids, RT treatment, steroids. Mostly etiology of symptoms is a viral pneumonia with underlying exacerbation of lung disease secondary to smoking. The results of ED evaluation were discussed with the patient including prescriptions and/or symptomatic cares (if applicable) including appropriate and responsible use, followup plan, and return precautions. The patient verbalized understanding and felt safe for discharge. Medical Records I reviewed the patient's medical records. Lab Data I reviewed the patient's lab results. 02/15/23 04:45 02/15/23 04:45 Radiology Impressions Chest X-Ray 02/15/23 04:37 IMPRESSION: No lobar consolidation is appreciated.No interval acute cardiopulmonary changes are appreciated. Laboratory Results WBC 11.7 10^3/uL (4.0-10.0) H 02/15/23 04:45 RBC 5.52 10^6/uL (4.1-5.3) H 02/15/23 04:45 Hgb 12.8 g/dL (11.5-15.3) 02/15/23 04:45 Hct 42.0 % (37.0-47.0) 02/15/23 04:45 MCV 76.1 fl (81-99) L 02/15/23 04:45 MCH 23.2 pg (28.0-34.0) L 02/15/23 04:45 MCHC 30.5 g/dL (30.0-36.0) 02/15/23 04:45 RDW 17.7 % (12.1-15.1) H 02/15/23 04:45 Plt Count 347 10^3/cmm (130-400) 02/15/23 04:45 MPV 8.9 fL (7.4-10.4) 02/15/23 04:45 Neut % (Auto) 76.4 % 02/15/23 04:45 Lymph % (Auto) 16.8 % 02/15/23 04:45 [place] % (Auto) 5.3 % 02/15/23 04:45 Eos % (Auto) 0.8 % 02/15/23 04:45 Baso % (Auto) 0.4 % 02/15/23 04:45 Neut # (Auto) 8.93 10^3/uL (1.8-7.7) H 02/15/23 04:45 Lymph # (Auto) 2.0 10^3/uL (0.8-4.8) 02/15/23 04:45 [place] # (Auto) 0.6 10^3/uL (0.2-0.9) 02/15/23 04:45 Eos # (Auto) 0.1 10^3/uL (0.0-0.8) 02/15/23 04:45 Baso # (Auto) 0.1 10^3/uL (0.0-0.1) 02/15/23 04:45 Nucleated RBC % (auto) 0 % 02/15/23 04:45 Nucleated RBCs # 0.0 /100WBC 02/15/23 04:45 Sodium 136 mmol/L (136-145) 02/15/23 04:45 Potassium 3.8 mmol/L (3.5-5.1) 02/15/23 04:45 Chloride 102 mmol/L (98-107) 02/15/23 04:45 Carbon Dioxide 21 mmol/L (22-29) L 02/15/23 04:45 Anion Gap 16.8 (5-19) 02/15/23 04:45 BUN 9 mg/dL (6-20) 02/15/23 04:45 Creatinine 0.7 mg/dL (0.5-0.9) 02/15/23 04:45 GFR Calculation 93.6 mL/min (90-130) 02/15/23 04:45 Glucose 156 mg/dL (65-115) H 02/15/23 04:45 Calculated Osmolality 284 mOsm/kg (285-295) L 02/15/23 04:45 Calcium 9.0 mg/dL (8.5-10.5) 02/15/23 04:45 NT-Pro-B Natriuret Pep 36 pg/mL (0-125) 02/15/23 04:45 Influenza Type A Ag Negative (Negative) 02/15/23 04:45 Influenza Type B Ag Negative (Negative) 02/15/23 04:45 SARS-CoV-2 Ag (Rapid) Negative (Negative) 02/15/23 04:45 Discharge Plan Discharge Patient Disposition: Home Clinical Impression: Viral pneumonia, Smoking Condition: Stable Prescriptions: New albuterol sulfate 90 mcg/actuation HFA aerosol inhaler 2 inh inhalation Q4H PRN (Reason: shortness of breath or wheezing) Qty: 8.5 0RF Reglan 10 mg tablet 10 mg PO Q6H PRN (Reason: headache) Qty: 20 0RF No Action naproxen 500 mg tablet,delayed release (DR/EC) 500 mg PO Q12H Qty: 30 0RF Discharge Orders: Discharge ED (Routine); Ordered 02/15/23 Ordered By: Raj Moe Discharge Diet: Usual diet Discharge Activity: Increase activity as tolerated Patient Instructions: Viral Pneumonia (ED), How to Stop Smoking (ED) Activity Restrictions/Additional Instructions: Thank you for visiting the emergency department. You are seen and evaluated for cough, headache, pain, generalized aches. The most likely cause of your symptoms is viral in nature. Given smoking you likely have a component of underlying lung disease which can be flared up and viral syndromes. You may use [id number] medications such as acetaminophen and ibuprofen for pain however please do not exceed the daily recommended dosage as listed on the packaging and please keep in mind that many namebrand medications contain the same active ingredients. Please avoid these medications if previously instructed to do so by another physician due to other underlying medical condition. I will also prescribe Reglan for headaches. I will prescribe steroids and antibiotics. Please also use your albuterol metered-dose inhaler 2 puffs every 4 hours for 24 hours followed by 2 puffs every 6 hours for 24 hours followed by 2 puffs every 8 hours for 24 hours and then return to the normal schedule. Please follow-up with your primary care provider. Return to the emergency department for anything that you are concerned about and feel needs emergency room evaluation. Stand Alone Forms: Work/School Release Coding Level of Care Code ED [employer] for [employer] [place]
--- NOTE | 2023-02-15 04:37 | XRR_ITS ---
PROCEDURE INFORMATION: Exam: XR Chest Exam date and time: 02/15/2023 5:10 AM Age: 38 years old Clinical indication: Cough and shortness of breath; Additional info: SOB, cough.No history of trauma or recent surgery is provided. TECHNIQUE: Imaging protocol: Radiologic exam of the chest. 1image(s) are provided. Views: 1 view. COMPARISON: CR XR chest 1V [id number] 05/28/2018 10:57 PM FINDINGS: Lungs: No lobar consolidation is appreciated. Pleural spaces: No pneumothorax or pleural effusion is appreciated. Heart/Mediastinum: The cardiomediastinal silhouette is within normal. No cardiac decompensation is appreciated. Diaphragm: The hemidiaphragms are symmetric. Bones/joints: Osseous alignment is maintained.No interval displaced fracture or dislocation is appreciated. There is subtly subluxed positioning of the glenohumeral junctions although may be positional rotation related. Soft tissues: No radiopaque foreign body or subcutaneous emphysema is appreciated. Other findings: There appears to be some overlying external artifact. No other significant interval changes are appreciated. XR/XR chest 1V portable [id number] IMPRESSION: No lobar consolidation is appreciated.No interval acute cardiopulmonary changes are appreciated.
[2023-02-15] MEDS: ketorolac 30 mg/mL INJ 15 MG IVP (04:48)
[2023-02-15] MEDS: sodium chloride 0.9% 1,000 ML 999 ML IV (04:48)
[2023-02-15] MEDS: metoclopramide 5 mg/mL SDV 2 mL 10 MG IVP (04:48)
[2023-02-15] MEDS: predniSONE 20 mg Tablet 60 MG PO (04:48)
[2023-02-15 04:51] VITALS: BP 139/105; PULSE 97; RESP 24; O2SAT 95
[2023-02-15 04:53] LABS: Basophils # 0.1 10^3/uL (0.0-0.1); Basophils % 0.4 %; Eosinophils # 0.1 10^3/uL (0.0-0.8); Eosinophils % 0.8 %; Hemoglobin 12.8 g/dL (11.5-15.3); Lymphocytes % 16.8 %; Mean Corpuscular HGB Conc 30.5 g/dL (30.0-36.0); Mean Corpuscular Hemoglobin 23.2 pg (28.0-34.0); Mean Corpuscular Volume 76.1 fl (81-99); Mean Platelet Volume 8.9 fL (7.4-10.4); Monocytes # 0.6 10^3/uL (0.2-0.9); Monocytes % 5.3 %; Neutrophils # 8.93 10^3/uL (1.8-7.7); Neutrophils % 76.4 %; Nucleated Red Blood Cells % 0 %; Platelet Count 347 10^3/cmm (130-400); Red Blood Count 5.52 10^6/uL (4.1-5.3); Red Cell Distribution Width 17.7 % (12.1-15.1); White Blood Count 11.7 10^3/uL (4.0-10.0)
[2023-02-15 04:55] VITALS: PULSE 97; O2SAT 97
[2023-02-15] MEDS: ipratropium-albuterol 3 mL Neb INHALATION (04:55)
[2023-02-15 04:58] VITALS: PULSE 103
[2023-02-15 05:22] LABS: Anion Gap 16.8 (5-19); Blood Urea Nitrogen 9 mg/dL (6-20); Carbon Dioxide 21 mmol/L (22-29); Chloride 102 mmol/L (98-107); Creatinine Clr Calc Pharmacy 123.4966; Glomerular Filtration Rate 93.6 mL/min (90-130); Glucose 156 mg/dL (65-115); NT Pro B Type Natriuretic Pept 36 pg/mL (0-125); Osmolality Calculated 284 mOsm/kg (285-295); Potassium 3.8 mmol/L (3.5-5.1); Sodium 136 mmol/L (136-145)
[2023-02-15 05:43] LABS: Influenza A by IFA Negative (Negative); Influenza B by IFA Negative (Negative); SARS Covid-2 Antigen Negative (Negative)
[2023-02-15 05:58] VITALS: BP 132/80; PULSE 86; RESP 18; O2SAT 96
--- NOTE | 2023-02-21 14:45 | DCPLANNER ---
research and development manager called patient due to no primary care physician - no answer at this time.
== END 2023-02-15 06:06 | disposition home or self-care (01) ==
PROVIDERS: Emergency Provider Emergency Medicine
DX: J18.9 Pneumonia, unspecified organism (principal); F17.210 Nicotine dependence, cigarettes, uncomplicated; Z20.822 Contact with and (suspected) exposure to COVID-19
CPT/HCPCS: 71045; 80048; 83880; 85025; 87426; 87804; 94640; 96361; 96374; 96375; 99284; J1885; J2765; J7030; J7512

== ENCOUNTER → 2024-05-22 09:30 | Outpatient (BNVA) | payer SELFPAY | PROVIDERS: PCP Family Medicine; Visit Provider Family Medicine | DX: E66.01 Morbid (severe) obesity due to excess calories (principal); Z68.41 Body mass index [BMI] 40.0-44.9, adult | CPT/HCPCS: 80053; 80061; 83036; 84439; 84443; 85025 ==

== ENCOUNTER → 2024-08-26 12:24 | Outpatient (BNVA) | payer OTHER, SELFPAY | PROVIDERS: PCP Family Medicine; Visit Provider Obstetrics & Gynecology | DX: N92.6 Irregular menstruation, unspecified (principal) | CPT/HCPCS: 76830 ==

== ENCOUNTER → 2024-10-16 17:23 | Outpatient (BNVA) | payer SELFPAY | PROVIDERS: PCP Family Medicine; Visit Provider Registered Nurse Neonatal Intensive Care | DX: J10.1 Influenza due to other identified influenza virus with other respiratory manifestations (principal) | CPT/HCPCS: 87400 ==

== ENCOUNTER → 2024-10-22 13:37 | Outpatient (BNVA) | payer OTHER, SELFPAY | PROVIDERS: PCP Family Medicine; Visit Provider Family Medicine | DX: R73.03 Prediabetes (principal); D64.9 Anemia, unspecified | CPT/HCPCS: 80053; 83036 ==

== ENCOUNTER → 2025-02-21 11:42 | Outpatient (BNVA) | payer OTHER, SELFPAY | PROVIDERS: PCP Family Medicine; Visit Provider Family Medicine | DX: R73.03 Prediabetes (principal) | CPT/HCPCS: 80053; 83036 ==

== ENCOUNTER → 2025-08-28 09:17 | Outpatient (BNVA) | payer OTHER, SELFPAY | PROVIDERS: PCP Family Medicine; Visit Provider Family Medicine | DX: E28.2 Polycystic ovarian syndrome (principal); R73.03 Prediabetes | CPT/HCPCS: 80053; 80061; 83036; 84439; 84443; 85025 ==